=== PATIENT | female | born 1955 | race African-American/Black ===

== ENCOUNTER 2016-12-28 08:58 | Emergency (ER) | payer MEDICARE ==
[~2016-12-28] VITALS: Ht 168.9 cm; Wt 72.7 kg
[~2016-12-28 08:58] MED LIST: ALEN35TA32 PO; ATOR20TA86 PO; BENZ2TAB10 PO; DICL75TA5 PO; FLUT16H NASAL; LEVO125 PO; LISI1TAB13 PO; LORA10TA7 PO; VITAD1000 PO
[2016-12-28 10:30] VITALS: BP 131/79
== END 2016-12-28 11:11 | disposition home or self-care (01) ==
LOC: EMS 08:59
DX: L30.9 Dermatitis, unspecified (principal); E78.00 Pure hypercholesterolemia, unspecified; I10 Essential (primary) hypertension; Z88.2 Allergy status to sulfonamides; Z88.8 Allergy status to other drugs, medicaments and biological substances
CPT/HCPCS: 99283

== ENCOUNTER 2017-07-23 14:38 | Emergency (ER) | payer MEDICARE ==
[~2017-07-23] VITALS: Ht 170.2 cm; Wt 72.3 kg
[2017-07-23] MEDS ORDERED: RANI150T7 PO (14:56)
[2017-07-23] MEDS ORDERED: FEXO-59 PO (14:56)
[2017-07-23] MEDS ORDERED: LISI-618 PO (14:56)
[2017-07-23] MEDS ORDERED: DONE10TA43 PO (14:56)
[2017-07-23] MEDS ORDERED: ZIPR80CA9 PO (14:56)
[2017-07-23] MEDS ORDERED: QUET200T29 PO (14:56)
[2017-07-23 16:58] VITALS: BP 119/75
== END 2017-07-23 17:47 | disposition home or self-care (01) ==
LOC: EMS 14:44
DX: S20.219A Contusion of unspecified front wall of thorax, initial encounter (principal); I10 Essential (primary) hypertension; E03.9 Hypothyroidism, unspecified; E78.00 Pure hypercholesterolemia, unspecified; Z88.1 Allergy status to other antibiotic agents; V43.52XA Car driver injured in collision with other type car in traffic accident, initial encounter; Y93.89 Activity, other specified; Y92.89 Other specified places as the place of occurrence of the external cause; Y99.8 Other external cause status
CPT/HCPCS: 71020; 93005; 99285

== ENCOUNTER 2017-09-27 16:20 | Emergency (ER) | payer MEDICARE ==
[~2017-09-27] VITALS: Ht 167.6 cm; Wt 63.6 kg
[~2017-09-27 16:20] MED LIST changes: +DONE10TA43 PO; +FEXO-59 PO; +LISI-618 PO; -LISI1TAB13 PO; +QUET200T29 PO; +RANI150T7 PO; +ZIPR80CA9 PO
[2017-09-27 16:51] VITALS: BP 144/84
== END 2017-09-27 18:19 | disposition home or self-care (01) ==
LOC: EMS 16:22
DX: R20.0 Anesthesia of skin (principal); R20.2 Paresthesia of skin; E78.00 Pure hypercholesterolemia, unspecified; I10 Essential (primary) hypertension; E03.9 Hypothyroidism, unspecified; Z88.2 Allergy status to sulfonamides; Z88.1 Allergy status to other antibiotic agents
CPT/HCPCS: 93005; 99283

== ENCOUNTER 2023-10-24 08:40 | Emergency (ER) | payer MEDICARE ==
[~2023-10-24] VITALS: Ht 167.6 cm; Wt 61.4 kg
[~2023-10-24 08:40] MED LIST changes: -ALEN35TA32 PO; +ALEN35TA41 PO; +ATOR20TA PO; -ATOR20TA86 PO; -BENZ2TAB10 PO; +BENZ2TAB71 PO; +CHOL100018 PO; +FEXO-270 PO; -FEXO-59 PO; -FLUT16H NASAL; +FLUT16SP NASAL; -LISI-618 PO; +LISI20TA24 PO; -QUET200T29 PO; +QUET200T30 PO; -VITAD1000 PO
[2023-10-24 08:49] VITALS: TEMP 98.3
[2023-10-24] MEDS ORDERED: ACETAMINOPHEN 325 MG TABLET PO ONE (09:00)
[2023-10-24] MEDS ORDERED: LIDOCAINE 5% TRANSDERMAL PATCH TD ONE (09:00)
[2023-10-24] MEDS ORDERED: LIDO700A15 TP (10:52)
[2023-10-24] MEDS ORDERED: ACET-3385 PO (10:52)
[2023-10-24 11:26] VITALS: BP 123/71; PULSE 74; RESP 16
== END 2023-10-24 11:26 | disposition home or self-care (01) ==
LOC: EMS 09:08
DX: R07.81 Pleurodynia (principal); E78.00 Pure hypercholesterolemia, unspecified; I10 Essential (primary) hypertension; E03.9 Hypothyroidism, unspecified; F20.9 Schizophrenia, unspecified; Z98.890 Other specified postprocedural states; Z88.2 Allergy status to sulfonamides; Z88.8 Allergy status to other drugs, medicaments and biological substances
CPT/HCPCS: 71101; 99283

== ENCOUNTER 2024-09-03 19:40 | Emergency (ER) | payer MEDICARE ==
[~2024-09-03] VITALS: Ht 165.1 cm; Wt 58.3 kg
[~2024-09-03 19:40] MED LIST changes: +ACET-3385 PO; -BENZ2TAB71 PO; +BENZ2TAB84 PO; +LIDO700A15 TP
[2024-09-03 20:25] VITALS: TEMP 97.6
[2024-09-03 20:41] LABS: BASOPHILS % (AUTO) 0.8 % (0.0-2.0); EOSINOPHILS % (AUTO) 2.2 % (1.0-6.0); HEMATOCRIT 33.1 % (36-46); HEMOGLOBIN 11.1 g/dL (12.0-16.0); LYMPHOCYTES # (AUTO) 1.2 K/uL (1.0-4.8); MEAN CORPUSCULAR HEMOGLOBIN 31.9 pg (26.0-34.0); MEAN CORPUSCULAR HGB CONC 33.6 G/dL (31.0-37.0); MEAN CORPUSCULAR VOLUME 95 fL (80-100); MONOCYTES # (AUTO) 0.5 K/uL (0.1-1.0); MONOCYTES % (AUTO) 7.9 % (2.0-9.0); NEUTROPHILS % (AUTO) 68.1 % (40.0-70.0); PLATELET COUNT (AUTO) 201 K/uL (150-450); RED BLOOD CELL COUNT(AUTO) 3.48 MIL/uL (4.00-5.20); RED CELL DISTRIBUTION WIDTH 14.8 % (11.5-14.5); WHITE BLOOD COUNT (AUTO) 5.9 K/uL (4.5-11.0)
[2024-09-03 20:57] LABS: ANION GAP 5 mmol/L (8-16); CARBON DIOXIDE 26 mmol/L (22-29); CHLORIDE 107 mmol/L (98-107); CREATININE 0.88 mg/dL (0.60-1.30); GLUCOSE,RANDOM 101 mg/dL (70-110); POTASSIUM 3.6 mmol/L (3.5-5.1); SODIUM SERUM 138 mmol/L (136-145); UREA NITROGEN, BLOOD 14 mg/dL (7-18)
[2024-09-03 20:58] LABS: CALCIUM, TOTAL 8.5 mg/dL (8.8-10.5); GLOMERULAR FILTR. RATE CALC > 60 mL/min (>60)
[2024-09-03 21:02] LABS: ALANINE AMINOTRANSFERASE 25 U/L (12-78); ALBUMIN 3.3 g/dL (3.4-5.0); ALKALINE PHOSPHATASE 80 U/L (46-116); ASPARTATE AMINOTRANSFERASE 22 U/L (15-37); BILIRUBIN,TOTAL 0.9 mg/dL (0.1-1.0); TOTAL PROTEIN, SERUM 6.5 g/dL (6.4-8.2)
[2024-09-03 21:16] LABS: TROPONIN I-HIGH SENSITIVITY 4 ng/L (<51)
[2024-09-03 22:50] LABS: LACTIC ACID 1.3 mmol/L (0.4-2.0)
[2024-09-04 00:13] LABS: APPEARANCE,URINE CLEAR (CLEAR); BILIRUBIN,URINE NEGATIVE (NEGATIVE); COLOR,URINE COLORLESS (YELLOW); GLUCOSE, URINE (UA) NEGATIVE (NEGATIVE); KETONES,URINE NEGATIVE (NEGATIVE); LEUKOCYTE ESTERASE ,URINE NEGATIVE (NEGATIVE); NITRATE,URINE NEGATIVE (NEGATIVE); OCCULT BLOOD,URINE NEGATIVE (NEGATIVE); PROTEIN,URINE NEGATIVE (NEGATIVE); SPECIFIC GRAVITIY, URINE 1.005 (1.003-1.030); UROBILINOGEN,URINE <=1.0 mg/dL (<=1.0)
[2024-09-04 03:25] VITALS: BP 125/79; PULSE 83; RESP 18; O2SAT 98
== END 2024-09-04 03:30 | disposition short-term general hospital (02) ==
LOC: EMS 19:40 → EDBEDREQ 09-04 00:21 → EMS 09-04 03:30
DX: R55 Syncope and collapse (principal); I10 Essential (primary) hypertension; E03.9 Hypothyroidism, unspecified; E78.00 Pure hypercholesterolemia, unspecified; F20.9 Schizophrenia, unspecified; Z88.1 Allergy status to other antibiotic agents; Z88.2 Allergy status to sulfonamides; Z79.899 Other long term (current) drug therapy
CPT/HCPCS: 70450; 71045; 72125; 80048; 80076; 81003; 83605; 83880; 84145; 84484; 85025; 93005; 99285; 36415-L1; 36415-TC